=== PATIENT | female | born 1950 | race Caucasian/White ===

== ENCOUNTER 2017-01-08 15:18 | Emergency (ER) | payer OTHER ==
--- NOTE | 2017-01-08 15:20 | DR.GENAD ---
HPI - HPI Comment HPI Comment: HISTORY BELOW. - Complaint/Symptoms Chief Complaint Doctors Comments: LEFT FLANK AND LT LATERAL ANDOMEN PAIN. CT CONFIRM 0.3 URETER STONE CLOSE TO LT UVJ. LEFT HYDRONEPHROSIS WAS REPORT. PATIENT HAVE INCREASE PAIN AND NAUSEA. NO FEVER.RIGHT LIVER CYSTS WAS NOTED. PATIENTS URINALYSIS DONE YESTERDAY WAS NORMAL. - Nurses notes reviewed Nurses Notes Review: Yes - Source History Provided: Patient, Family Member - Mode of Arrival Mode of Arrival: Ambulatory - Timing Came on: Suddenly - Duration Duration: Intermittent Duration: Days - Severity Severity: Moderate ROS - Review of Systems Constitutional: No Symptoms Reported Eyes: No Symptoms Reported ENTM: No Symptoms Reported Respiratoy: No Symptoms Reported Cardiovascular: No Symptoms Reported Gastrointestinal/Abdominal: Abdominal Pain (LATERAL ABDOMINAL PAIN.), Nausea Genitourinary: No Symptoms Reported Neurological: No Symptoms Reported Musculoskeletal: Back Pain (LT FLANK PAIN) Integumentary: No Symptoms Reported Hematologic/Lymphatic: No Symptoms Reported Endocrine: No Symptoms Reported All Other Systems: Reviewed and Negative PE - Vital Signs Vitals: Temperature 99.0 F Pulse Rate 88 Respiratory Rate 18 Blood Pressure 161/69 O2 Sat by Pulse Oximetry 97 - General Limitations: No Limitations General Appearance: Alert - Head Head Exam: Normal Inspection - Eyes Eye exam: Normal Appearance - ENT ENT Exam: Normal External Ear Exam External Ear Exam: Normal External Inspection TM/Canal Exam: Bilateral Normal Nose Exam: Normal Nose Exam Mouth Exam: Normal Inspection Throat Exam: Normal Inspection - Neck Neck Exam: Trachea Midline - Chest Chest Inspection: Symmetric Chest Wall Rise - Respiratory Respiratory Exam: Normal Lung Sounds Bilat Respiratory Exam: Bilateral Clear to Auscultation - Cardiovascular Cardiovascular Exam: Regular Rate, Normal Rhythm, Normal Heart Sounds - Abdominal Exam Abdominal Exam: Normal Bowel Sounds, Soft. negative: Tenderness - Extremities Extremities Exam: Normal Inspection - Back Back Exam: negative: (L) CVA Tenderness - Neurologic Neurological Exam: Alert - Psychiatric Psychiatric Exam: Normal Affect, Normal Mood - Skin Skin Exam: Normal Color MDM - Additional Information Additional Information Obtained From: Family - Differential Diagnosis Differential Diagnosis: LEFT RENAL STONE, LEFT FLANK PAIN Course - Treatment Treatment: SEE ORDERS. - Reevaluation 1st: Improved (WITH 1L NS BOLUS AND TORADOL AND PHENERGAN IV.) - Education/Counseling Education/Counseling: Patient, Education Educated On: Treatment, Diagnosis, Needs for Follow Up ROR - Labs Reviewed Laboratory Results Reviewed?: Yes Result Diagrams: 01/08/17 15:36 01/08/17 15:36 Laboratory: WBC 12.2 X10^3/uL (3.6-10.0) H 01/08/17 15:36 RBC 5.06 X10^6/uL (3.5-5.4) 01/08/17 15:36 Hgb 15.5 g/dL (12.0-16.0) 01/08/17 15:36 Hct 45.2 % (36.0-47.0) 01/08/17 15:36 MCV 89.3 fL (80.0-100.0) 01/08/17 15:36 MCH 30.7 pg (27.0-34.0) 01/08/17 15:36 MCHC 34.4 g/dL (33.0-35.0) 01/08/17 15:36 RDW 12.8 % (11.6-16.5) 01/08/17 15:36 Plt Count 189 X10^3/uL (150.0-450.0) 01/08/17 15:36 MPV 8.8 fL (7.4-11.0) 01/08/17 15:36 Neut % 74.1 % (42.0-75.0) 01/08/17 15:36 Lymph % 17.2 % (21.0-51.0) L 01/08/17 15:36 Pitt % 7.7 % (0.0-13.0) 01/08/17 15:36 Eos % 0.4 % (0.9-2.9) L 01/08/17 15:36 Baso % 0.6 % (0.2-1.0) 01/08/17 15:36 Neut # 9.0 x10^3/uL (2.2-4.8) H 01/08/17 15:36 Lymph # 2.1 X10^3/uL (1.3-2.9) 01/08/17 15:36 Pitt # 0.9 x10^3/uL (0.3-0.8) H 01/08/17 15:36 Eos # 0.0 x10^3/uL (0.0-0.2) 01/08/17 15:36 Baso # 0.1 X10^3/uL (0.0-0.1) 01/08/17 15:36 Absolute Nucleated RBC 0.0 /100WBC 01/08/17 15:36 Sodium 144 mmol/L (136-145) 01/08/17 15:36 Corrected Sodium TNP 01/08/17 15:36 Potassium 3.8 mmol/L (3.5-5.1) 01/08/17 15:36 Chloride 107 mmol/L (98-107) 01/08/17 15:36 Carbon Dioxide 25.7 mmol/L (21-32) 01/08/17 15:36 BUN 24 mg/dL (7-18) H 01/08/17 15:36 Creatinine 1.23 mg/dL (0.55-1.02) H 01/08/17 15:36 Est GFR (MDRD) Af Amer 56 (>60) L 01/08/17 15:36 Est GFR (MDRD) Non-Af 47 (>60) L 01/08/17 15:36 Glucose 105 mg/dL (65-99) H 01/08/17 15:36 Calcium 8.8 mg/dL (8.5-10.1) 01/08/17 15:36 Corrected Calcium TNP 01/08/17 15:36 Total Bilirubin 0.40 mg/dL (0.2-1.0) 01/08/17 15:36 AST 26 Units/L (15-37) 01/08/17 15:36 ALT 45 Units/L (12-78) 01/08/17 15:36 Alkaline Phosphatase 62 Units/L (46-116) 01/08/17 15:36 Total Protein 7.2 g/dL (6.4-8.2) 01/08/17 15:36 Albumin 3.8 g/dL (3.4-5.0) 01/08/17 15:36 Globulin 3.4 g/dL (2.5-4.5) 01/08/17 15:36 Albumin/Globulin Ratio 1.1 Ratio (1.1-2.1) 01/08/17 15:36 - XRAY XRAY Findings: REVIEWED CT DONE AT [facility] YESTERDAY. - Diagnosis Discharge Problem: Calculus of left kidney - Discharge Plan Disposition: HOME, SELF-CARE Condition: Stable Prescriptions: Ketorolac Tromethamine [Toradol Tab] 10 mg PO Q8H PRN #15 tab PRN Reason: Pain Promethazine HCl [PHENERGAN TAB 25 MG *] 25 mg PO Q8H PRN #15 tab PRN Reason: Nausea/Vomiting Tamsulosin HCl [Flomax] 0.4 mg PO DAILY #10 cap - Follow ups/Referrals Follow ups/Referrals: STEPHANIE DOWNEY [Primary Care Provider] - 2 days - Instructions Instructions: Kidney Stones, [id number] Additional Instructions: RETURN TO ED IF WORSE.
[2017-01-08] MEDS ORDERED: TORADOL 30 MG VIAL IVP ONE (15:23)
[2017-01-08] MEDS ORDERED: PHENERGAN INJ 25 MG IV ONE (15:23)
[2017-01-08 15:24] VITALS: BP 161/69; BMI 26.4
[2017-01-08] MEDS ORDERED: NS 1000 ML 1,000 ML IV ONE (15:26)
[2017-01-08] MEDS ORDERED: TORADOL 30 MG VIAL ONE (15:28)
[2017-01-08] MEDS ORDERED: NS 1000 ML 1,000 ML ONE (15:28)
[2017-01-08] MEDS ORDERED: PHENERGAN INJ 25 MG ONE (15:28)
[2017-01-08 15:49] LABS: BASOPHILS # (AUTO) 0.1 X10^3/uL (0.0-0.1); BASOPHILS % (AUTO) 0.6 % (0.2-1.0); EOSINOPHILS % (AUTO) 0.4 % (0.9-2.9); HEMATOCRIT 45.2 % (36.0-47.0); HEMOGLOBIN 15.5 g/dL (12.0-16.0); LYMPHOCYTES # (AUTO) 2.1 X10^3/uL (1.3-2.9); LYMPHOCYTES % (AUTO) 17.2 % (21.0-51.0); MEAN CORPUSCULAR HEMOGLOBIN 30.7 pg (27.0-34.0); MEAN CORPUSCULAR HGB CONC 34.4 g/dL (33.0-35.0); MEAN CORPUSCULAR VOLUME 89.3 fL (80.0-100.0); MEAN PLATELET VOLUME 8.8 fL (7.4-11.0); MONOCYTES # (AUTO) 0.9 x10^3/uL (0.3-0.8); MONOCYTES % (AUTO) 7.7 % (0.0-13.0); NEUTROPHILS % (AUTO) 74.1 % (42.0-75.0); PLATELET COUNT 189 X10^3/uL (150.0-450.0); RED BLOOD COUNT 5.06 X10^6/uL (3.5-5.4); RED CELL DISTRIBUTION WIDTH 12.8 % (11.6-16.5); WHITE BLOOD COUNT 12.2 X10^3/uL (3.6-10.0)
[2017-01-08 16:00] LABS: ALANINE AMINOTRANSFERASE 45 Units/L (12-78); ALBUMIN 3.8 g/dL (3.4-5.0); ALKALINE PHOSPHATASE 62 Units/L (46-116); ASPARTATE AMINO TRANSFERASE 26 Units/L (15-37); BLOOD UREA NITROGEN 24 mg/dL (7-18); CALCIUM 8.8 mg/dL (8.5-10.1); CARBON DIOXIDE 25.7 mmol/L (21-32); CHLORIDE 107 mmol/L (98-107); CREATININE 1.23 mg/dL (0.55-1.02); GLUCOSE 105 mg/dL (65-99); SODIUM 144 mmol/L (136-145); TOTAL PROTEIN 7.2 g/dL (6.4-8.2); eGFR BLACK RACES 56 (>60); eGFR NON BLACK RACES 47 (>60)
[2017-01-08] MEDS ORDERED: FLOMAX PO ONE (16:47)
== END 2017-01-08 17:14 | disposition home or self-care (01) ==
LOC: ER 15:35
DX: N20.0 Calculus of kidney (principal)
CPT/HCPCS: 36415; 80053; 85025; 96365; 96374; 96375; 99283; A4222; J1885; J2550